=== PATIENT | female | born 1990 | race Caucasian/White ===

== ENCOUNTER 2017-06-15 14:24 | Emergency (ER) | payer OTHER ==
[2017-06-15] MEDS ORDERED: Ibuprofen TAB* 600 MG PO ONE (14:57)
[2017-06-15 14:58] VITALS: BP 122/83
[2017-06-15] MEDS ORDERED: Acetaminophen TAB* 325 MG PO ONE (14:58)
--- NOTE | 2017-06-15 15:07 | UC ---
UC General HPI - HPI Summary HPI Summary: pt c/o runny nose, sore throat, fever and body aches. - History of Current Complaint Chief Complaint: UCGeneralIllness Stated Complaint: FEVER/ST/RUNNY NOSE Time Seen by Provider: 06/15/17 14:53 Hx Obtained From: Patient Hx Last Menstrual Period: ON MIRENA Onset/Duration: Sudden Onset, Still Present - since this am Pain Intensity: 4 Associated Signs & Symptoms: Positive: Fever - Allergy/Home Medications Allergies/Adverse Reactions: Allergies Allergy/AdvReac Type Severity Reaction Status Date / Time No Known Allergies Allergy Verified 06/15/17 14:50 Home Medications: Home Medications Ibuprofen 600 06/15/17 [History] PMH/Surg Hx/FS Hx/Imm Hx Previously Healthy: Yes - Surgical History Surgical History: Yes Surgery Procedure, Year, and Place: RIGHT KNEE ARHTROSCOPY. WISDOM TEETH REMOVED - Social History Occupation: Employed Full-time Lives: With Family Alcohol Use: Rare Substance Use Type: None Smoking Status (MU): Never Smoked Tobacco - Immunization History Vaccination Up to Date: Yes Review of Systems Constitutional: Fever Skin: Negative Eyes: Negative ENT: Sore Throat, Nasal Discharge Respiratory: Negative Cardiovascular: Negative Gastrointestinal: Negative Genitourinary: Negative Motor: Negative Neurovascular: Negative Musculoskeletal: Myalgia Neurological: Negative Psychological: Negative Is Patient Immunocompromised?: No All Other Systems Reviewed And Are Negative: Yes Physical Exam Triage Information Reviewed: Yes Appearance: Well-Appearing Vital Signs: Initial Vital Signs Temp 102.3 F 06/15/17 14:48 Pulse 109 06/15/17 14:48 Resp 18 06/15/17 14:48 BP 122/83 06/15/17 14:48 Pulse Ox 99 06/15/17 14:48 Vital Signs Reviewed: Yes Eyes: Positive: Conjunctiva Clear ENT: Positive: Pharyngeal erythema, Nasal congestion, Nasal drainage - clear, TMs normal, Uvula midline. Negative: Tonsillar swelling, Tonsillar exudate, Trismus, Muffled voice, Hoarse voice Neck: Positive: Supple, Nontender, No Lymphadenopathy Respiratory: Positive: Lungs clear, Normal breath sounds Cardiovascular: Positive: RRR, No Murmur, Pulses Normal Abdomen Description: Positive: Nontender, No Organomegaly, Soft Bowel Sounds: Positive: Present Musculoskeletal: Positive: ROM Intact Neurological: Positive: Alert Psychological: Positive: Age Appropriate Behavior Skin Exam: Normal Diagnostics - Laboratory Diagnostic Studies Completed/Ordered: rapid strep=+, rapid flu=neg Course/Dx - Course Course Of Treatment: +strep throat - Differential Dx - Multi-Symptom Provider Diagnoses: strep throat Discharge - Discharge Plan Condition: Stable Disposition: HOME Prescriptions: Amoxicillin 875 mg PO BID #20 tablet Forms: *Work Release Referrals: Cris Torres NP [Primary Care Provider] - 7 Days
== END 2017-06-15 15:33 | disposition home or self-care (01) ==
LOC: UCCORT 14:24
DX: J02.0 Streptococcal pharyngitis (principal); J10.1 Influenza due to other identified influenza virus with other respiratory manifestations
CPT/HCPCS: 87502; 87651; 99202; A9270-GY; G0463

== ENCOUNTER 2018-11-10 17:14 | Emergency (ER) | payer OTHER ==
[2018-11-10 17:48] VITALS: BP 99/68
[2018-11-10] MEDS ORDERED: Ibuprofen TAB* 600 MG PO ONE (17:59)
--- NOTE | 2018-11-10 18:07 | UC ---
Back Pain HPI - HPI Summary HPI Summary: 38-year-old woman comes in with chief complaint of low back pain it's radiating down her left leg. Yesterday she was lifting turning twisting bending at the same time and felt sudden pain in the low back. Pain radiates down through her left buttock into her left leg. She's had a similar injury about 3 years ago. She has not tried any pain medicines. No weakness or numbness. No difficulty controlling urine or bowels. Pain is worse with movement. - History of Current Complaint Chief Complaint: UCBackPain Stated Complaint: BACK PAIN Time Seen by Provider: 11/10/18 17:32 Hx Last Menstrual Period: Merana Pain Intensity: 6 - Allergies/Home Medications Allergies/Adverse Reactions: Allergies Allergy/AdvReac Type Severity Reaction Status Date / Time No Known Allergies Allergy Verified 11/10/18 17:48 Home Medications: Home Medications Levonorgestrel (Iud) [Mirena IUD] 20 mcg IU 11/10/18 [History] PMH/Surg Hx/FS Hx/Imm Hx Previously Healthy: Yes - Surgical History Surgical History: Yes Surgery Procedure, Year, and Place: RIGHT KNEE ARHTROSCOPY. WISDOM TEETH REMOVED - Family History Known Family History: Positive: Non-Contributory - Social History Alcohol Use: Rare Substance Use Type: None Smoking Status (MU): Never Smoked Tobacco - Immunization History Vaccination Up to Date: Yes Review of Systems All Other Systems Reviewed And Are Negative: Yes Constitutional: Positive: Negative Skin: Positive: Negative Eyes: Positive: Negative ENT: Positive: Negative Respiratory: Positive: Negative Cardiovascular: Positive: Negative Gastrointestinal: Positive: Negative Genitourinary: Positive: Negative Motor: Positive: Negative Neurovascular: Positive: Negative Musculoskeletal: Positive: Other: - SEE HPI Neurological: Positive: Negative Psychological: Positive: Negative Is Patient Immunocompromised?: No Physical Exam Triage Information Reviewed: Yes Appearance: Well-Appearing, Well-Nourished, Pain Distress - MILD WITH ROM Vital Signs: Initial Vital Signs Temp 98.5 F 11/10/18 17:43 Pulse 86 11/10/18 17:43 Resp 16 11/10/18 17:43 BP 99/68 11/10/18 17:43 Pulse Ox 99 11/10/18 17:43 Vital Signs Reviewed: Yes Eye Exam: Normal Eyes: Positive: Conjunctiva Clear Neck: Positive: Supple Respiratory: Positive: No respiratory distress Musculoskeletal: Positive: Other: - Low back is tender to palpation in the midline and also into the left buttock and the sciatic distribution. Legs a full range of motion full-strength no sensation deficit. Neurological: Positive: Alert Psychological: Positive: Age Appropriate Behavior Skin Exam: Normal Back Pain Course/Dx - Course Course Of Treatment: Plan is ibuprofen and Flexeril as needed. Also discussed the lidocaine patch. Also discussed stretching. But the patient know if she got worse weakness numbness loss of control of urine or bowels she needed to get reevaluated right away. Otherwise follow-up with her primary care doctor. Can also return here if worse or any questions or concerns. - Differential Dx/Diagnosis Provider Diagnosis: Acute low back pain with left-sided sciatica Discharge - Sign-Out/Discharge Documenting (check all that apply): Patient Departure All imaging exams completed and their final reports reviewed: No Studies - Discharge Plan Condition: Stable Disposition: HOME Prescriptions: Cyclobenzaprine TAB* [Flexeril 10 MG TAB*] 10 mg PO TID PRN #15 tab MDD 3 PRN Reason: Pain - Moderate Patient Education Materials: Acute Low Back Pain (ED), Lower Back Exercises (ED ) Referrals: Cris Torres NP [Primary Care Provider] - Additional Instructions: FOLLOW UP WITH YOUR DOCTOR IF NOT COMPLETELY IMPROVED. GET RECHECKED SOONER IF YOUR CONDITION WORSENS; WEAKNESS, NUMBNESS, DIFFICULTY CONTROLLING BOWEL OR BLADDER OR ANY QUESTIONS OR CONCERNS. - Billing Disposition and Condition Condition: STABLE Disposition: Home
== END 2018-11-10 18:13 | disposition home or self-care (01) ==
LOC: UCCORT 17:14
DX: M54.42 Lumbago with sciatica, left side (principal)
CPT/HCPCS: 99212; A9270-GY; G0463

== ENCOUNTER 2019-01-14 10:32 | Emergency (ER) | payer OTHER ==
[2019-01-14 12:00] VITALS: BP 116/64
[2019-01-14] MEDS ORDERED: Ibuprofen TAB* 600 MG PO ONE (12:05)
--- NOTE | 2019-01-14 12:23 | UC ---
Throat Pain/Nasal Rafael HPI - HPI Summary HPI Summary: ONSET LAST NIGHT WITH MILD SORE THROAT. TODAY AT WORK SHE DEVELOPED CHILLS, NAUSEA, WORSE THROAT PAIN, WEAKNESS, HEADACHE. VOMITED TWICE THIS AM. PT"S DAUGHTER HAS STREP. - History of Current Complaint Chief Complaint: UCRespiratory Stated Complaint: ST,CHILLS Time Seen by Provider: 01/14/19 12:20 Hx Obtained From: Patient Hx Last Menstrual Period: DOES NOT HAVE REG PERIODS, HAS THE MIRENA IUD ?: No Onset/Duration: Sudden Onset, Lasting Days Severity: Moderate Pain Intensity: 6 Cough: Nonproductive Associated Signs & Symptoms: Positive: Dysphagia, Hoarseness, Fever - Allergies/Home Medications Allergies/Adverse Reactions: Allergies Allergy/AdvReac Type Severity Reaction Status Date / Time No Known Allergies Allergy Verified 01/14/19 11:52 PMH/Surg Hx/FS Hx/Imm Hx Previously Healthy: Yes - Surgical History Surgical History: Yes Surgery Procedure, Year, and Place: RIGHT KNEE ARHTROSCOPY. WISDOM TEETH REMOVED - Family History Known Family History: Negative: Hypertension - Social History Alcohol Use: Rare Substance Use Type: None Smoking Status (MU): Never Smoked Tobacco - Immunization History Vaccination Up to Date: Yes Review of Systems All Other Systems Reviewed And Are Negative: Yes Constitutional: Positive: Fever ENT: Positive: Sore Throat, Nasal Discharge Respiratory: Positive: Cough Is Patient Immunocompromised?: No Physical Exam Triage Information Reviewed: Yes Appearance: Well-Nourished, Ill-Appearing, Pain Distress Vital Signs: Initial Vital Signs Temp 100.5 F 01/14/19 11:53 Pulse 103 01/14/19 11:53 Resp 16 01/14/19 11:53 BP 116/64 01/14/19 11:53 Pulse Ox 99 01/14/19 11:53 Vital Signs Reviewed: Yes Eye Exam: Normal ENT: Positive: Pharyngeal erythema, TM bulging, Tonsillar swelling, Tonsillar exudate Dental Exam: Normal Neck exam: Normal Respiratory Exam: Normal Cardiovascular Exam: Normal Abdominal Exam: Normal Musculoskeletal Exam: Normal Neurological Exam: Normal Psychological Exam: Normal Skin Exam: Normal Throat Pain/Nasal Course/Dx - Course Course Of Treatment: hx obtained, exam performed ,meds reviewed, rapid strep is positive, treated. - Differential Dx/Diagnosis Differential Diagnosis/HQI/PQRI: Laryngitis, Pharyngitis, Sinusitis, URI Provider Diagnosis: Strep pharyngitis Discharge ED - Sign-Out/Discharge Documenting (check all that apply): Patient Departure All imaging exams completed and their final reports reviewed: No Studies - Discharge Plan Condition: Stable Disposition: HOME Prescriptions: Amoxicillin PO (*) [Amoxicillin 500 MG CAP*] 500 mg PO Q12H #20 cap Patient Education Materials: Strep Throat (DC) Referrals: Cris Torres [employer]IST [Primary Care Provider] - Additional Instructions: 1. take the medication as prescribed. 2. FOllow up as needed. - Billing Disposition and Condition Condition: STABLE Disposition: Home
== END 2019-01-14 12:31 | disposition home or self-care (01) ==
LOC: UCCORT 10:32
DX: J02.0 Streptococcal pharyngitis (principal)
CPT/HCPCS: 87651; 99212; A9270-GY; G0463